=== PATIENT | female | born 1930 | race Caucasian/White ===

== ENCOUNTER 2016-05-26 03:05 | Inpatient (IN) | payer OTHER ==
[~2016-05-26] VITALS: Ht 160 cm; Wt 41.6 kg
[2016-05-26] VITALS (13 sets, daily range): BP systolic 92–128; BP diastolic 54–63; PULSE 75–106; TEMP 36.3–36.6; O2SAT 90–99; Ht 160 cm; Wt 41.6 kg
[2016-05-26] MEDS ORDERED: CEPH500C2 PO (03:16)
[2016-05-26] MEDS ORDERED: PIPERACILLIN/TAZOBACTAM 4.5 GM/100ML D5W IV STA (03:18)
[2016-05-26] MEDS ORDERED: TRAZ50TA35 PO (03:18)
[2016-05-26] MEDS ORDERED: VANCOMYCIN INJ 1,000 MG in SODIUM CHLORIDE 0.9% 250ML 250 ML IV STA (03:18)
[2016-05-26] MEDS ORDERED: FUROSEMIDE 40 MG/4 ML VIAL IV STA (03:18)
[2016-05-26] MEDS ORDERED: LEVO88TA3 PO (03:18)
[2016-05-26] MEDS ORDERED: LISI-789 PO (03:20)
[2016-05-26] MEDS ORDERED: CLOP1TAB15 PO (03:20)
[2016-05-26] MEDS ORDERED: ATOR-24 PO (03:21)
[2016-05-26] MEDS ORDERED: ISOS-10 PO (03:22)
[2016-05-26] MEDS ORDERED: POLY335019 PO (03:23)
[2016-05-26] MEDS ORDERED: ASPI81TA28 PO (03:24)
[2016-05-26] MEDS ORDERED: CLR10 PO (03:24)
[2016-05-26] MEDS ORDERED: NTRGSL/4 UT (03:25)
--- NOTE | 2016-05-26 03:25 | EMERGENCY ROOM VISIT NOTE ---
History Report prepared by Jong: Luis Miguel Rich Under the Supervision of: Dr. Rola Henry M.D. First contact with patient: 03:12 Chief Complaint: SHORTNESS OF BREATH Stated Complaint: RESPIRATORY DIFFICUTLY History of Present Illness The patient is a 85 year old female who presents to the Emergency Room via EMS with complaints of constant shortness of breath occurring prior to arrival. Per the nursing staff, the patient came in on CPAP, and she possibly aspirated around 1800. The patient states that her leg has been red and swollen for the past two weeks, and she fell about a week ago. The patient states that she has a history of irregular heart rates. She denies taking any blood thinners and smoking. Source of History: patient, nursing staff Onset: prior to arrival Position: other (global) Quality: other (shortness of breath) Timing: constant Associated Symptoms: No fevers Note: Associated symptoms: Red leg with swelling Review of Systems See HPI for pertinent positives & negatives. A total of 10 systems reviewed and were otherwise negative. Past Medical & Surgical Medical Problems: (1) A-fib Social History Marital Status: Occupation Status: retired Current/Historical Medications Scheduled Aspirin (Aspirin Ec), 81 MG PO DAILY Atorvastatin (Lipitor), 40 MG PO DAILY Cephalexin Monohydrate (Keflex), 500 MG PO TID Clopidogrel (Plavix), 75 MG PO DAILY Isosorbide Mononitrate (Isosorbide Mononitrate ER), 60 MG PO DAILY Levothyroxine Sodium (Levothyroxine Sodium), 88 MCG PO DAILY Lisinopril (Zestril), 2.5 MG PO DAILY Nitroglycerin (Nitrostat), 0.4 MG UT PRN Scheduled PRN Loratadine (Claritin), 10 MG PO DAILY PRN for ALLERGIC REACTION Polyethylene Glycol 3350 (Miralax), 17 GM PO DAILY PRN for Constipation Trazodone Hcl (Trazodone), 50 MG PO HS PRN for Insomnia Allergies Coded Allergies: Penicillins (Verified Allergy, Unknown, UNKNOWN, 05/26/16) Sulfa Antibiotics (Verified Allergy, Unknown, UNKNOWN, 05/26/16) Physical Exam Vital Signs Date Time Temp Pulse Resp B/P Pulse Ox O2 Delivery O2 Flow Rate FiO2 05/26/16 06:21 94 25 126/69 92 4/21/17 06:09 72 05/26/16 06:09 106 92 30 05/26/16 05:29 100 36 116/56 93 CPAP 05/26/16 04:12 91 30 124/46 94 BiPAP 30 05/26/16 03:32 95 05/26/16 03:31 87 98 30 05/26/16 03:12 36.7 101 27 123/75 97 Nasal Cannula 4.0 05/26/16 03:12 95 Nasal Cannula 4.0 Physical Exam Vital signs reviewed. General: Well-appearing female, in no significant distress. HEENT: No scleral icterus, PERRLA, neck supple. Atraumatic. Cardiovascular: Regular rate and irregular rhythm, no extra sounds. Pulmonary: Coarse breath sounds bilaterally, normal work of breathing. Abdomen: Soft, nontender, nondistended, positive bowel sounds. Musculoskeletal: Pitting edema in bilateral lower extremities 3+. Erythema to the left leg from the ankle to the knee with ecchymosis to the lateral and posterior aspect that is warm to the touch. Neurologic: Patient awake but minimally verbal. Patient is able to follow commands but is somewhat anxious. Skin: Warm, dry, left lower extremity erythema as described above. Medical Decision & Procedures ER Provider Diagnostic Interpretation: Radiology results as stated below per my review and radiologist interpretation: US VENOUS BILATERAL LOWER EXTREMITIES: No evidence of deep venous thrombosis. Edema, limiting evaluation of calf veins. X-ray results as stated below per interpretation by me: Chest X-Ray: Cardiomegaly. No focal lung consolidation. No evidence of failure. Laboratory Results 05/26/16 02:28 Red Blood Count 3.78, Mean Corpuscular Volume 101.6, Mean Corpuscular Hemoglobin 33.1, Mean Corpuscular Hemoglobin Concent 32.6, Mean Platelet Volume 11.1, Neutrophils (%) (Auto) 82.0, Lymphocytes (%) (Auto) 9.1, Monocytes (%) ( Auto) 8.1, Eosinophils (%) (Auto) 0.4, Basophils (%) (Auto) 0.1, Neutrophils # ( Auto) 7.34, Lymphocytes # (Auto) 0.82, Monocytes # (Auto) 0.73, Eosinophils # ( Auto) 0.04, Basophils # (Auto) 0.01 05/26/16 02:28 Test 05/26/16 02:28 05/26/16 03:19 05/26/16 03:36 05/26/16 03:37 White Blood Count 8.97 K/uL (4.8-10.8) Red Blood Count 3.78 M/uL (4.2-5.4) Hemoglobin 12.5 g/dL (12.0-16.0) Hematocrit 38.4 % (37-47) Mean Corpuscular Volume 101.6 fL (80-100) Mean Corpuscular Hemoglobin 33.1 pg (25-34) Mean Corpuscular Hemoglobin Concent 32.6 g/dl (32-36) Platelet Count 276 K/uL (130-400) Mean Platelet Volume 11.1 fL (7.4-10.4) Neutrophils (%) (Auto) 82.0 % Lymphocytes (%) (Auto) 9.1 % Monocytes (%) (Auto) 8.1 % Eosinophils (%) (Auto) 0.4 % Basophils (%) (Auto) 0.1 % Neutrophils # (Auto) 7.34 K/uL (1.4-6.5) Lymphocytes # (Auto) 0.82 K/uL (1.2-3.4) Monocytes # (Auto) 0.73 K/uL (0.11-0.59) Eosinophils # (Auto) 0.04 K/uL (0-0.5) Basophils # (Auto) 0.01 K/uL (0-0.2) RDW Standard Deviation 64.2 fL (36.4-46.3) RDW Coefficient of Variation 17.4 % (11.5-14.5) Immature Granulocyte % (Auto) 0.3 % Immature Granulocyte # (Auto) 0.03 K/uL (0.00-0.02) Prothrombin Time 10.9 SECONDS (9.0-12.0) Prothromb Time International Ratio 1.0 (0.9-1.1) Activated Partial Thromboplast Time 27.1 SECONDS (21.0-31.0) Partial Thromboplastin Ratio 1.0 Est Creatinine Clear Calc Drug Dose 83.3 ml/min Estimated GFR () 118.1 Estimated GFR (Non- 101.9 BUN/Creatinine Ratio 52.8 (10-20) Calcium Level 8.6 mg/dl (8.5-10.1) Magnesium Level 2.1 mg/dl (1.8-2.4) Total Bilirubin 1.5 mg/dl (0.2-1) Direct Bilirubin 0.5 mg/dl (0-0.2) Aspartate Amino Transf (AST/SGOT) 28 U/L (15-37) Alanine Aminotransferase (ALT/SGPT) 32 U/L (12-78) Alkaline Phosphatase 353 U/L (45-117) Total Creatine Kinase 92 U/L (26-192) Creatine Kinase MB 5.4 ng/ml (0.5-3.6) Creatine Kinase MB Ratio 5.9 (0-3.0) Total Protein 7.4 gm/dl (6.4-8.2) Albumin 3.0 gm/dl (3.4-5.0) Thyroid Stimulating Hormone (TSH) 1.590 uIu/ml (0.300-4.500) Bedside Troponin I 0.010 ng/ml (0-0.045) KZ-Uqs-I-Type Natriuretic Peptide 3090 pg/ml (0-1800) Bedside Lactic Acid Venous 0.83 mmol/L (0.90-1.70) Bedside Hemoglobin 12.6 g/dl (12.0-16.0) Bedside Hematocrit 37 % (37-47) Bedside Sodium 140 mEq/L (135-144) Bedside Potassium 4.3 mEq/L (3.3-5.0) Bedside Chloride 100 mEq/L (101-112) Bedside Total CO2 27 mEq/l (24-31) Anion Gap 17.0 mmol/L (16-25) Bedside Blood Urea Nitrogen 17 mg/dl (7-18) Bedside Creatinine 0.3 mg/dl (0.6-1.3) Bedside Glucose (other) 118 mg/dl (70-99) Bedside Ionized Calcium (Cailin) 1.20 mmol/l (1.12-1.32) Test 05/26/16 03:46 05/26/16 06:02 05/26/16 06:05 Urine Color YELLOW Urine Appearance CLEAR (CLEAR) Urine pH 5.0 (4.5-7.5) Urine Specific [place] >= 1.030 (1.000-1.030) Urine Protein TRACE (NEG) Urine Glucose (UA) NEG (NEG) Urine Ketones NEG (NEG) Urine Occult Blood 1+ (NEG) Urine Nitrite NEG (NEG) Urine Bilirubin NEG (NEG) Urine Urobilinogen NEG (NEG) Urine Leukocyte Esterase NEG (NEG) Urine RBC 5-10 /hpf (0-4) Urine WBC 1-5 /hpf (0-5) Urine Epithelial Cells 10-20 /lpf (0-5) Urine Amorphous Sediment PRESENT (NONE PRSENT) Urine Bacteria NEG (NEG) Arterial Blood pH 7.27 (7.35-7.45) Arterial Blood Partial Pressure CO2 67 mmHg (35-46) Arterial Blood Partial Pressure O2 69 mm/Hg (80-95) Arterial Blood HCO3 30 mmol/L (19-24) Arterial Blood Oxygen Saturation 88.7 % (90-95) Arterial Blood Base Excess 2.2 mEq/L (-9-1.8) Arterial Blood Gas Delivery 30% Armani Test POS (POS) Ammonia 32.0 umol/L (11-32) Laboratory results per my review. Medications Administered Medications (Trade) Dose Ordered Sig/Kev Route Start Time Stop Time Status Last Admin Dose Admin Furosemide (Lasix Inj) 40 mg NOW STAT IV 05/26/16 03:18 05/26/16 03:23 DC 05/26/16 03:36 40 MG Piperacillin Sod/ Tazobactam Sod 4.5 gm 4.5 gm NOW STAT IV 05/26/16 03:18 05/26/16 03:23 DC 05/26/16 03:36 4.5 GM Vancomycin HCl/ Sodium Chloride (Vancomycin Inj/ Nss 250ml) 270 ml @ 125 mls/hr NOW STAT IV 05/26/16 03:18 05/26/16 05:27 DC 05/26/16 04:08 125 MLS/HR Lorazepam (Ativan Inj) 0.5 mg NOW STAT IV 05/26/16 04:33 05/26/16 04:34 DC 05/26/16 04:45 0.5 MG Methylprednisolone Sodium Succinate (Solu-Medrol IV) 40 mg TODAY@0600 IV 05/26/16 06:00 05/26/16 10:00 05/26/16 06:19 40 MG ECG Indication: SOB/dyspnea Rate (beats per minute): 88 Rhythm: atrial fibrillation Findings: no acute ischemic change, other (Previous anterior infarct) ED Course 0312: Past medical records reviewed. The patient was evaluated in room A2. A complete history and physical examination was performed. 0318: Vancomycin HCl 1000mg/ Sodium Chloride 270 ml @ 125 mls/hr, Zosyn IV 4.5gm IV, Lasix Inj 40mg IV 0433: Ativan Inj 0.5mg IV 0532: I reevaluated the patient, and she was resting. 0536: I discussed the patient's case with Dr. Robbins. He is going to evaluate the patient for further treatment Medical Decision Differential diagnosis: Etiologies such as sepsis, CHF, UTI, pneumonia, metabolic, electrolyte abnormalities, cardiac sources, intracerebral event, toxicologic, neurologic, as well as others were entertained. This patient was evaluated and appeared to be in significant distress. IV access was obtained and laboratory work was drawn. The patient was placed on BiPAP and given 40 mg of IV Lasix. Chest x-ray reveals cardiomegaly. Bilateral lower extremities Dopplers were performed and are negative for DVT. The patient is a left colectomy cellulitis. Her family states that she aspirated on some bread earlier in the day. She was covered with IV vancomycin , IV Zosyn. Patient was given 0.5 mg of IV Ativan for agitation while on BiPAP. Oxygen saturations are in the low 90s on BiPAP currently. Patient is found to be in a rate controlled atrial fibrillation. Cardiac enzymes are normal. Dr. Garrison of the hospitalist service was consulted to evaluate the patient for further management. Consults Time Called: 531 Consulting Physician: Dr. Robbins Returned Call: 0536 I discussed the patient's case with Dr. Robbins. He is going to evaluate the patient for further treatment Impression Primary Impression: Cellulitis of left lower extremity Additional Impressions: Respiratory failure Pulmonary aspiration CHF (congestive heart failure) A-fib Critical Care I have personally spent greater than 30 minutes of critical care time in the direct management of this patient. This includes bedside care, interpretation of diagnostic studies, and testing, discussion with consultants, patient, and family members, and other required patient management activities. This 30 minutes is in excess of all separately billable procedures. Scribe Attestation The scribe's documentation has been prepared under my direction and personally reviewed by me in its entirety. I confirm that the note above accurately reflects all work, treatment, procedures, and medical decision making performed by me. Departure Information Dispostion Being Evaluated By Hospitalist Patient Instructions My [facility] Problem Qualifiers
[2016-05-26 03:30] LABS: BASO % 0.1 %; BASO ABS # 0.01 K/uL (0-0.2); COMPLETE YES; EOS % 0.4 %; HEMATOCRIT 38.4 % (37-47); IG% 0.3 %; LYMPH % 9.1 %; LYMPH ABS # 0.82 K/uL (1.2-3.4); MEAN CELL VOLUME 101.6 fL (80-100); MEAN CORPUSCULAR HEMOGLOBIN 33.1 pg (25-34); MEAN CORPUSCULAR HGB CONC 32.6 g/dl (32-36); MEAN PLATELET VOLUME 11.1 fL (7.4-10.4); MONO % 8.1 %; PLATELET COUNT 276 K/uL (130-400); RED BLOOD COUNT 3.78 M/uL (4.2-5.4); WHITE BLOOD COUNT 8.97 K/uL (4.8-10.8)
[2016-05-26 03:40] LABS: PROTHROMBIN TIME (PATIENT) 10.9 SECONDS (9.0-12.0)
[2016-05-26 03:41] LABS: POINT OF CARE TROPONIN I 0.01 ng/ml (0-0.045)
[2016-05-26 03:48] LABS: BUN/CREATININE RATIO 52.8 (10-20); CALCIUM 8.6 mg/dl (8.5-10.1); CREATININE 0.33 mg/dl (0.60-1.20); MAGNESIUM 2.1 mg/dl (1.8-2.4); POTASSIUM 4.2 mmol/L (3.5-5.1)
[2016-05-26 03:53] LABS: CKMB/CK RATIO 5.9 (0-3.0)
[2016-05-26 04:03] LABS: ISTAT CREATININE 0.3 mg/dl (0.6-1.3); ISTAT HEMOGLOBIN 12.6 g/dl (12.0-16.0); ISTAT IONIZED CALCIUM 1.2 mmol/l (1.12-1.32)
[2016-05-26] MEDS ORDERED: LORAZEPAM 2 MG/ML 1 ML VIAL IV STA (04:33)
[2016-05-26 04:37] LABS: MANUAL MICROSCOPIC REQUIRED? YES; URINE APPEARANCE CLEAR (CLEAR); URINE BILIRUBIN NEG (NEG); URINE COLOR YELLOW; URINE NITRITE NEG (NEG); URINE SPECIFIC GRAVITY >= 1.030 (1.000-1.030); UROBILINOGEN NEG (NEG)
[2016-05-26 04:42] LABS: REVIEW REQ? NO
[2016-05-26 04:47] LABS: URINE AMORPHOUS SEDIMENT PRESENT (NONE PRSENT); URINE BACTERIA NEG (NEG); ZZURINE CULT IF INDIC CATH NO
[2016-05-26] MEDS ORDERED: LEVALBUTEROL/IPRATROPIUM NEB INH STA (05:38)
[2016-05-26] MEDS ORDERED: METHYLPREDNISOLONE IV 40 MG in SYRINGE 0 ML IV ONE (05:45)
[2016-05-26] MEDS ORDERED: IPRATROPIUM BROMIDE NEB SOLN 0.02% 2.5 ML VIAL INH STA (06:01)
[2016-05-26] MEDS ORDERED: LEVALBUTEROL 1.25MG/0.5ML NEB INH STA (06:01)
[2016-05-26 06:16] LABS: ALLEN TEST POS (POS); ARTERIAL BLD GAS O2 SATURATION 88.7 % (90-95); ARTERIAL BLOOD GAS BASE EXCESS 2.2 mEq/L (-9-1.8); ARTERIAL BLOOD GAS HCO3 30 mmol/L (19-24); ARTERIAL BLOOD GAS PO2 69 mm/Hg (80-95); ARTERIAL BLOOD GAS pH 7.27 (7.35-7.45); O2 ADMINISTRATION 30%
[2016-05-26] MEDS ORDERED: NITROGLYCERIN 0.4 MG SL PER TAB CHARGE SL PRN (06:45)
[2016-05-26] MEDS ORDERED: IPRATROPIUM BROMIDE NEB SOLN 0.02% 2.5 ML VIAL INH PRN (06:45)
[2016-05-26] MEDS ORDERED: POLYETHYLENE (MIRALAX) 17 GM PACK PO PRN (06:45)
[2016-05-26] MEDS ORDERED: LEVALBUTEROL/IPRATROPIUM NEB INH PRN (06:45)
[2016-05-26] MEDS ORDERED: DEXTROSE 50% 50 ML SYR IV PRN (06:45)
[2016-05-26] MEDS ORDERED: TRAZODONE HCL 50 MG TAB PO PRN (06:45)
[2016-05-26] MEDS ORDERED: ACETAMINOPHEN 325 MG TAB PO PRN (06:45)
[2016-05-26] MEDS ORDERED: LEVALBUTEROL 1.25MG/0.5ML NEB INH PRN (06:45)
[2016-05-26] MEDS ORDERED: TRAMADOL HCL 50 MG TAB PO PRN (06:45)
[2016-05-26] MEDS ORDERED: GLUCOSE 10 TABS/TUBE PO PRN (06:45)
[2016-05-26] MEDS ORDERED: GLUCAGON FOR INJ 1 MG VIAL SQ PRN (06:45)
[2016-05-26] MEDS ORDERED: GLUCOSE 40% GEL 15 GM TUBE PO PRN (06:45)
[2016-05-26] MEDS: INSULIN ASPART 100 UNITS/ML 3 ML PEN SC SCH ×4 (07:00→20:23)
--- NOTE | 2016-05-26 07:06 | DIAGNOSTIC IMAGING REPORT ---
ULTRASOUND BILATERAL LOWER EXTREMITY VENOUS CLINICAL HISTORY: Lower extremity edema. COMPARISON STUDY: No priors. TECHNIQUE: Real-time, grayscale, and color Doppler sonography of the deep veins of the right and left lower extremity was performed from the inguinal crease to the calf. Compression and augmentation were utilized. FINDINGS: There is no sonographic evidence of deep venous thrombosis identified in the right or left lower extremity. The common femoral, superficial femoral, and popliteal veins are patent and normally compressible bilaterally. The greater saphenous vein and the profunda femoris vein at the junction with the common femoral vein are clear in both legs. The visualized calf veins are patent bilaterally. Soft tissue edema is present in both legs. IMPRESSION: There is no sonographic evidence of deep venous thrombosis identified in the right or left lower extremity. Electronically signed by: Moose Mata M.D. 05/26/2016 7:03 AM Dictated Date/Time: 05/26/2016 7:03 AM
--- NOTE | 2016-05-26 07:16 | DIAGNOSTIC IMAGING REPORT ---
SINGLE VIEW CHEST CLINICAL HISTORY: Dyspnea. FINDINGS: An AP, portable, upright chest radiograph is obtained. No prior studies are available for comparison at the time of dictation. The examination is significantly degraded by portable technique and patient rotation. The apices are secured by the patient's head. The heart is markedly enlarged and there is atherosclerotic calcification of the thoracic aorta. The pulmonary vasculature is noncongested. Chronic appearing interstitial thickening is noted. Airspace consolidation is seen at the left lung base. Small pleural effusions are suspected. No pneumothorax is seen. The skeletal structures are osteopenic. Degenerative change and scoliosis are noted in the thoracic spine. Cholecystectomy clips are seen in the right upper quadrant. IMPRESSION: 1. Cardiomegaly without radiographic evidence of congestive failure. 2. Left basilar consolidation is identified. This could represent atelectasis, aspiration pneumonitis, and/or pneumonia. Clinical correlation will be required. 3. Small pleural effusions. Electronically signed by: Moose Mata M.D. 05/26/2016 7:14 AM Dictated Date/Time: 05/26/2016 7:12 AM
[2016-05-26] MEDS: IPRATROPIUM BROMIDE NEB SOLN 0.02% 2.5 ML VIAL INH SCH ×3 (07:21→20:24)
[2016-05-26] MEDS: LEVALBUTEROL 1.25MG/0.5ML NEB INH SCH ×3 (07:21→20:24)
[2016-05-26] MEDS ORDERED: SODIUM CHLORIDE 0.9% 500ML 500 ML IV ONE (07:30)
[2016-05-26] MEDS: LACTOBACILLUS ACIDOPHILUS (FLORANEX) TAB PO SCH ×4 (07:30→19:50)
[2016-05-26] MEDS ORDERED: CLINDAMYCIN HCL 150 MG CAP PO SCH ×2 (08:00→11:00)
--- NOTE | 2016-05-26 08:10 | HISTORY & PHYSICAL EXAMINATION ---
DATE OF ADMISSION: 05/26/2016 PRIMARY CARE PHYSICIAN: Dr. Gilbert. History obtained from patient's daughter and records, limited history from the patient secondary to illness and hearing impairment. CHIEF COMPLAINT: Shortness of breath. 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 Last week the patient hit her left leg against refrigerator. Outpatient workup negative for fracture, DVT. Given Keflex for possible cellulitis left leg, leg more swollen. The last few days, patient seemed to be losing strength in the legs - legs heavy. px having trouble moving around as per daughters. PX denies headache. Last night, the patient noted to choke on food, worsening of chronic cough symptoms, productive of yellow sputum. No cp. Patient refused to go to the Emergency Room. Earlier this morning, the patient's noted by daughter that the patient was having more labored breathing. At the Emergency Room the patient noted to be in respiratory distress. Px on CPAP on arrival. Received Lasix, Zosyn and vancomycin at the ER. PX currently on BIPAP. MEDICAL HISTORY: As above. 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 Px used to go to [facility]. At the time of last G Cardio visit last 04/2016, patient deemed not to be a good candidate for anticoag secondary to age and cognitive deficits as per note. An outpatient 2D echo from October 2014 showed EF of 55-60%, mild RV dilatation, LA size normal, pulmonary artery is not well seen, mild aortic stenosis, aortic valve area 1.6 cm, mean gradient is 7 mm, mild MR, moderate TR, mild pulmonary hypertension, diastolic dysfunction. Seen by [facility] last December 2015 for abnormal liver function, concern for primary biliary cirrhosis. Patient refused to go for followup appointment to discuss results. As per daughter conversation with [facility] over the phone, px will not likely go for further testing given that px was well and because of px age. SURGICAL HISTORY: Cholecystectomy, hysterectomy, cataract surgery. HOME MEDICATIONS: Aspirin, Plavix, Lipitor, Keflex, isosorbide mononitrate, levothyroxine, Zestril, loratadine, Nitrostat, MiraLax, trazadone. ALLERGIES: PENICILLIN, SULFA. FAMILY HISTORY: Family history of heart disease. PERSONAL AND SOCIAL HISTORY: Nonsmoker, no chronic intake of alcoholic beverages. 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 REVIEW OF SYSTEMS: could not be reliably obtained PHYSICAL EXAMINATION: VITAL SIGNS: Blood pressure was noted to be 130/70, pulse rate 110, pulse rate 95, RR 30, temperature 36.7, sats 95 on 4 liters. GENERAL: Hyposthenic, in respiratory distress. Marked hearing impairment. SKIN: Normal color. HEAD, EYES, EARS, NOSE, AND THROAT: Center palpebral conjunctivae. Dry mucosa. BiPAP in place. NECK: no JVD, supple CHEST: Occasional wheeze, rhonchi. HEART: irregular, systolic murmur. ABDOMEN: Some distension, nontender. EXTREMITIES: erythematous, swollen LLE, some tenderness NEUROLOGIC EXAMINATION: No gross focality except for decreased strength on the LLE 3/5 (unknown duration), marked hearing impairment. LABORATORY DATA: Hemoglobin 12.5, hematocrit 34, white cells 8.9, platelets 270. Sodium 140, potassium 4.2, chloride 104, CO2 36, BUN 17, creatinine 1. BNP 3000. trop 0.1 Total bilirubin 1.5, direct bilirubin 1.5, AST 28, ALT Chest x-ray cardiomegaly, atelectasis. LE Venous Dopplers bilateral lower extremity edema, no DVT. EKG Afib. ASSESSMENT AND PLAN: 1. Acute hypoxemic respiratory failure 2 to aspiration pneumonitis known aspiration risk. no sepsis 2. CAD status post dilatation as per records/sp stenting as per daughter's 3. history valvular heart disease 4. Hypertension, stable. 5. Atrial fibrillation/poss SSS/hx 2AVB as per records rate controlled not on anticoagulation due to age and possible cognitive deficits as per outpatient Cardiology eval 6. Left lower extremity cellulitis, failed outpatient treatment. recent trauma no sepsis 7. LE weakness ro CVA 8. diet-controlled DM2, well controlled as of recent hemoglobin A1c April 2016 was 5.1. 9. Malnutrition. Low BMI. 10. poss primary biliary cirrhosis as per outpx records px refused outpx GI ffup PCU continue BiPAP. Baseline ABG. Clindamycin for aspiration pneumonitis and cellulitis. Solu-Medrol one dose now for aspiration pneumonitis. may benefit from additional steroid dose Nebs RTC, p.r.n. swallow evaluation. local measures for cellulitis CT head RE LE weakness ro stroke with hx of Afib not on anticoagulation. ISS BG goal 140 to 180. PT, OT eval. Nutrition consult DVT prophylaxis, Lovenox subQ if no bleed on the CT of the head. DNR PER PATIENT'S PREVIOUS WISHES. Daughter, Ms. Beverly Dumont requesting updates from providers at [phone]. Total critical care time was 5 minutes. MTDD
[2016-05-26 08:35] LABS: INFLUENZA A PCR Neg for Influ A (NEG); INFLUENZA B PCR Neg for Influ B (NEG)
[2016-05-26] MEDS: ATORVASTATIN 40 MG TAB PO SCH (09:00)
[2016-05-26] MEDS: LEVOTHYROXINE 88 MCG TAB PO SCH (09:00)
[2016-05-26] MEDS ORDERED: LEVALBUTEROL/IPRATROPIUM NEB INH SCH (09:00)
[2016-05-26] MEDS: ISOSORBIDE MONONITRATE 60 MG TABCR PO SCH (09:00)
[2016-05-26] MEDS ORDERED: CLINDAMYCIN CONSULT ACTIVE PRN ×2 (09:00)
[2016-05-26] MEDS: ASPIRIN 81 MG ECTAB PO SCH (09:00)
[2016-05-26] MEDS: CLOPIDOGREL BISULFATE 75 MG TAB PO SCH (09:00)
[2016-05-26] MEDS: LISINOPRIL 2.5 MG TAB PO SCH (09:00)
[2016-05-26 10:23] LABS: ARTERIAL BLD GAS O2 SATURATION 93.2 % (90-95); ARTERIAL BLOOD GAS BASE EXCESS 0.9 mEq/L (-9-1.8); ARTERIAL BLOOD GAS HCO3 30 mmol/L (19-24); ARTERIAL BLOOD GAS PO2 83 mm/Hg (80-95); ARTERIAL BLOOD GAS pH 7.22 (7.35-7.45)
[2016-05-26 10:26] LABS: ALLEN TEST POS (POS); O2 ADMINISTRATION 4L
[2016-05-26] MEDS ORDERED: PIPERACILL/TAZOBAC CONSULT ACTIVE PRN (12:15)
[2016-05-26] MEDS: PIPERACILL/TAZOBAC IV 3.375 GM in DEXTROSE 5% 100ML 100 ML IV SCH ×2 (13:12→19:50)
[2016-05-26] MEDS: BOOST BREEZE NUTRITION DRINK 1 BOX PO SCH (16:45)
--- NOTE | 2016-05-26 17:48 | DIAGNOSTIC IMAGING REPORT ---
ANKLE MIN 3 VIEWS ROUTINE CLINICAL HISTORY: S/P fall pain COMPARISON: None. DISCUSSION: Considerable degenerative change. No acute bony abnormality. Ankle mortise is aligned anatomically. There is no evidence for soft tissue swelling. IMPRESSION: Considerable degenerative change. No acute process. Electronically signed by: Collin Ramirez M.D. 05/26/2016 5:46 PM Dictated Date/Time: 05/26/2016 5:45 PM
--- NOTE | 2016-05-26 17:49 | DIAGNOSTIC IMAGING REPORT ---
LEFT KNEE 1 OR 2 VIEWS ROUTINE CLINICAL HISTORY: S/P Fall trauma. Pain. COMPARISON: None. DISCUSSION: Moderate generalized degenerative change. No evidence for fracture or dislocation. There is no evidence for soft tissue swelling. IMPRESSION: No acute process. Electronically signed by: Collin Ramirez M.D. 05/26/2016 5:47 PM Dictated Date/Time: 05/26/2016 5:46 PM
--- NOTE | 2016-05-26 17:50 | DIAGNOSTIC IMAGING REPORT ---
LEFT TIBIA/FIBULA 2 VIEWS ROUTINE CLINICAL HISTORY: S/P fall COMPARISON: None. DISCUSSION: The bones and joint spaces appear intact. There is no evidence of fracture, dislocation or bony disease. There is no evidence for soft tissue swelling. IMPRESSION: Negative study. Electronically signed by: Collin Ramirez M.D. 05/26/2016 5:48 PM Dictated Date/Time: 05/26/2016 5:48 PM
--- NOTE | 2016-05-26 18:08 | DIAGNOSTIC IMAGING REPORT ---
HEAD CT NONCONTRAST CT DOSE: 998.18 mGy.cm HISTORY: Mental status change leg weakness TECHNIQUE: Multiaxial CT images of the head were performed without the use of intravenous contrast. Comparison: None. Findings: The paranasal sinuses and mastoid air cells are clear. The calvarium and skull base are intact. The ventricles and sulci are within normal limits. There is no mass, hematoma, midline shift, or acute infarct. Impression: No acute intracranial abnormality. Electronically signed by: Collin Ramirez M.D. 05/26/2016 6:06 PM Dictated Date/Time: 05/26/2016 6:04 PM
[2016-05-26] MEDS ORDERED: ACETAMINOPHEN IV 650 MG in EMPTY BAG 0 ML IV PRN (19:00)
[2016-05-27] VITALS (10 sets, daily range): BP systolic 96–110; BP diastolic 55–68; PULSE 83–110; TEMP 36.3–36.6; O2SAT 85–98
[2016-05-27] MEDS ORDERED: HALOPERIDOL 1 MG TAB PO PRN (00:15)
[2016-05-27] MEDS ORDERED: HALOPERIDOL LACTATE 5 MG/ML 1 ML VIAL IM PRN (00:15)
[2016-05-27] MEDS ORDERED: HALOPERIDOL LACTATE 5 MG/ML 1 ML VIAL ONE (00:26)
[2016-05-27 01:06] LABS: ARTERIAL BLD GAS O2 SATURATION 96.5 % (90-95); ARTERIAL BLOOD GAS BASE EXCESS 1.7 mEq/L (-9-1.8); ARTERIAL BLOOD GAS HCO3 30 mmol/L (19-24); ARTERIAL BLOOD GAS PO2 99 mm/Hg (80-95); ARTERIAL BLOOD GAS pH 7.28 (7.35-7.45)
[2016-05-27 01:07] LABS: ALLEN TEST POS (POS); CREATININE 0.45 mg/dl (0.60-1.20); O2 ADMINISTRATION 40%
[2016-05-27 01:08] LABS: BUN/CREATININE RATIO 47.4 (10-20); CALCIUM 8.1 mg/dl (8.5-10.1); POTASSIUM 4.2 mmol/L (3.5-5.1)
[2016-05-27] MEDS: LEVALBUTEROL 1.25MG/0.5ML NEB INH SCH ×3 (01:09→14:27)
[2016-05-27] MEDS: IPRATROPIUM BROMIDE NEB SOLN 0.02% 2.5 ML VIAL INH SCH ×3 (01:09→14:27)
[2016-05-27 01:26] LABS: ALB/GLOB RATIO 0.6 (0.9-2)
[2016-05-27] MEDS: PIPERACILL/TAZOBAC IV 3.375 GM in DEXTROSE 5% 100ML 100 ML IV SCH ×2 (04:29→12:08)
[2016-05-27] MEDS: HEPARIN SOD 5000 UNIT/0.5 ML CARP SQ SCH ×2 (05:45→14:20)
[2016-05-27] MEDS: LEVOTHYROXINE 88 MCG TAB PO SCH (05:46)
[2016-05-27 06:53] LABS: BASO % 0.1 %; BASO ABS # 0.01 K/uL (0-0.2); COMPLETE YES; EOS % 0.1 %; HEMATOCRIT 37.1 % (37-47); IG% 0.3 %; LYMPH % 1.9 %; MEAN CELL VOLUME 103.6 fL (80-100); MEAN CORPUSCULAR HEMOGLOBIN 31.8 pg (25-34); MEAN CORPUSCULAR HGB CONC 30.7 g/dl (32-36); MEAN PLATELET VOLUME 11.1 fL (7.4-10.4); MONO % 6.3 %; NEUT % 91.3 %; PLATELET COUNT 270 K/uL (130-400); RED BLOOD COUNT 3.58 M/uL (4.2-5.4); WHITE BLOOD COUNT 15.99 K/uL (4.8-10.8)
[2016-05-27] MEDS: INSULIN ASPART 100 UNITS/ML 3 ML PEN SC SCH ×2 (07:00→11:00)
[2016-05-27 07:18] LABS: BUN/CREATININE RATIO 48.3 (10-20); CALCIUM 8.6 mg/dl (8.5-10.1); CREATININE 0.52 mg/dl (0.60-1.20); POTASSIUM 3.9 mmol/L (3.5-5.1)
[2016-05-27] MEDS: BOOST BREEZE NUTRITION DRINK 1 BOX PO SCH (07:30)
[2016-05-27] MEDS: LACTOBACILLUS ACIDOPHILUS (FLORANEX) TAB PO SCH ×2 (07:30→11:30)
[2016-05-27] MEDS: CLOPIDOGREL BISULFATE 75 MG TAB PO SCH (07:58)
[2016-05-27] MEDS: ATORVASTATIN 40 MG TAB PO SCH (07:59)
[2016-05-27] MEDS: LISINOPRIL 2.5 MG TAB PO SCH (07:59)
[2016-05-27] MEDS: ASPIRIN 81 MG ECTAB PO SCH (07:59)
[2016-05-27] MEDS: ISOSORBIDE MONONITRATE 60 MG TABCR PO SCH (09:00)
[2016-05-27] MEDS ORDERED: METHYLPREDNISOLONE IV 40 MG in SYRINGE 0 ML IV ONE (09:15)
--- NOTE | 2016-05-27 09:57 | Progress Note ---
Subjective Date of Service: May 27, 2016. Subjective Pt evaluation today including: conversation w/ patient, physical exam, lab review, review of studies, review of inpatient medication list Saw/examined the patient in room 240 Not doing well today as per nursing, she was talking this morning; tried to eat something and aspirated a significant portion of it She opens her eyes to sternal rub; but no answers only saturating in the upper 80s with Bipap on +crackles on exam, no swelling of legs; +erythematous left leg with some warmth to touch Problem List Medical Problems: (1) Cellulitis of left lower extremity Status: Acute (2) CHF (congestive heart failure) Status: Acute (3) Pulmonary aspiration Status: Acute (4) Respiratory failure Status: Acute Medications Current Inpatient Medications Medications (Trade) Dose Ordered Sig/Kev Route Start Time Stop Time Status Last Admin Dose Admin Lactobacillus Acidophilus (Floranex Tab) 4 tab QIDM PO 05/26/16 07:30 06/25/16 07:59 Ipratropium [place] (Atrovent 0.02% 0.5MG/2.5ML Neb) 0.5 mg Q6R INH 05/26/16 09:00 06/25/16 08:59 05/27/16 07:46 0.5 MG Levalbuterol (Xopenex 1.25MG/ 0.5ML Neb) 1.25 mg Q6R INH 05/26/16 09:00 06/25/16 08:59 05/27/16 07:46 1.25 MG Ipratropium [place] (Atrovent 0.02% 0.5MG/2.5ML Neb) 0.5 mg Q4H PRN INH 05/26/16 06:45 06/25/16 06:44 Levalbuterol (Xopenex 1.25MG/ 0.5ML Neb) 1.25 mg Q4H PRN INH 05/26/16 06:45 06/25/16 06:44 Acetaminophen (Tylenol Tab) 650 mg Q4H PRN PO 05/26/16 06:45 06/25/16 06:44 Nitroglycerin (Nitrostat Tab) 0.4 mg UD PRN SL 05/26/16 06:45 06/25/16 06:44 Insulin Aspart (novoLOG ASPART) SLIDING SCALE If C... ACHS SC 4/21/17 07:00 06/25/16 06:59 Glucose (Glucose 40% Gel) 15-30 GRAMS 15 GRAMS... UD PRN PO 05/26/16 06:45 06/25/16 06:44 Glucose (Glucose Chew Tab) 4-8 Tablets 4 Tabl... UD PRN PO 05/26/16 06:45 06/25/16 06:44 Dextrose (Dextrose 50% 50ML Syringe) 25-50ML OF 50% DW IV FOR... UD PRN IV 05/26/16 06:45 06/25/16 06:44 Glucagon (Glucagon Inj) 1 mg UD PRN SQ 05/26/16 06:45 06/25/16 06:44 Aspirin (Ecotrin Tab) 81 mg DAILY PO 05/26/16 09:00 06/25/16 08:59 05/27/16 07:59 81 MG Clopidogrel Bisulfate (plAVix TAB) 75 mg DAILY PO 05/26/16 09:00 06/25/16 08:59 05/27/16 07:58 75 MG Isosorbide Mononitrate (Imdur Ext Rel Tab) 60 mg DAILY PO 05/26/16 09:00 06/25/16 08:59 Levothyroxine Sodium (Synthroid Tab) 88 mcg DAILYBB PO 05/26/16 09:00 06/25/16 08:59 05/27/16 05:46 88 MCG Lisinopril (Zestril Tab) 2.5 mg DAILY PO 05/26/16 09:00 06/25/16 08:59 05/27/16 07:59 2.5 MG Trazodone HCl (Desyrel Tab) 25 mg HS PRN PO 05/26/16 06:45 06/25/16 06:44 Polyethylene (Miralax Powder Packet) 17 gm DAILY PRN PO 05/26/16 06:45 06/25/16 06:44 Tramadol HCl (Ultram Tab) 25 mg Q6H PRN PO 05/26/16 06:45 06/25/16 06:44 Atorvastatin Calcium 40 mg 40 mg DAILY PO 05/26/16 09:00 06/25/16 08:59 05/27/16 07:59 40 MG Piperacillin Sod/ Tazobactam Sod/ Dextrose (Zosyn Iv/D5 100ml) 115 ml @ 28.75 mls/ hr Q8H IV 05/26/16 12:00 06/02/16 11:59 05/27/16 04:29 28.75 MLS/HR Piperacillin Sod/ Tazobactam Sod (Consult) 1 ea UD PRN N/A 05/26/16 12:15 06/25/16 12:14 Enteral Nutritional Formula 1 box 1 box BIDM PO 05/26/16 16:45 06/25/16 16:44 Acetaminophen/ Empty Bag (Ofirmev Iv/ Empty Iv Bag 100ml) 65 ml @ 260 mls/hr Q6H PRN IV 05/26/16 19:00 06/25/16 18:59 Heparin Sodium (Porcine) (Heparin Sq 5000 Unit/0.5ml) 5,000 unit Q8 SQ 05/27/16 06:00 06/26/16 05:59 05/27/16 05:45 5,000 UNIT Haloperidol (Haldol Tab) 2 mg Q4H PRN PO 05/27/16 00:15 06/26/16 00:14 Haloperidol Lactate 2 mg 2 mg Q2H PRN IM 05/27/16 00:15 06/26/16 00:14 Methylprednisolone Sodium Succinate/ Syringe (Solu-Medrol IV/ Syringe) 0.64 ml @ 1.5 mls/min ONE ONCE IV 05/27/16 09:15 05/27/16 09:16 Objective Vital Signs Date Time Temp Pulse Resp B/P Pulse Ox O2 Delivery O2 Flow Rate FiO2 05/27/16 07:46 84 20 96 BiPAP/CPAP 35 05/27/16 07:46 84 96 35 05/27/16 07:33 36.5 105 20 100/57 94 BiPAP 05/27/16 04:00 BiPAP 40 05/27/16 03:49 36.4 83 20 96/55 98 05/27/16 01:19 35 05/27/16 01:10 87 96 40 05/27/16 01:09 87 24 96 BiPAP/CPAP 40 05/27/16 00:01 BiPAP 40 05/26/16 23:41 36.4 85 20 105/61 98 05/26/16 20:30 105 95 40 05/26/16 20:25 105 20 95 BiPAP/CPAP 40 05/26/16 20:00 BiPAP 40 05/26/16 19:18 36.5 104 18 100/56 95 Non-Rebreather 10.0 05/26/16 16:00 BiPAP 40 05/26/16 15:02 36.3 82 16 92/58 99 BiPAP 05/26/16 14:09 76 17 97 BiPAP/CPAP 40 05/26/16 14:09 76 97 40 05/26/16 12:05 BiPAP 40 05/26/16 12:00 BiPAP 40 05/26/16 11:45 83 96 40 05/26/16 11:14 36.3 75 20 93/54 96 BiPAP Physical Exam General Appearance: + moderate distress, + cachetic, + thin, + pertinent finding (+lethargic, thin, cachectic) Respiratory/Chest: + decreased breath sounds, + crackles (diffuse) Cardiovascular: regular rate, rhythm, no edema Extremities: + pertinent finding (erythematous left leg, warm to touch) Neurologic/Psychiatric: + pertinent finding (opens eyes to tactile stimuli) Laboratory Results Last 24 Hours Test 05/26/16 09:49 05/26/16 10:12 05/26/16 11:17 05/26/16 16:11 Troponin I < 0.015 ng/ml Arterial Blood pH 7.22 Arterial Blood Partial Pressure CO2 76 mmHg Arterial Blood Partial Pressure O2 83 mm/Hg Arterial Blood HCO3 30 mmol/L Arterial Blood Oxygen Saturation 93.2 % Arterial Blood Base Excess 0.9 mEq/L Arterial Blood Gas Delivery 4L Armani Test POS Bedside Glucose 127 mg/dl 144 mg/dl Test 05/26/16 20:08 05/27/16 00:29 05/27/16 06:30 05/27/16 06:46 Bedside Glucose 163 mg/dl 102 mg/dl Arterial Blood pH 7.28 Arterial Blood Partial Pressure CO2 65 mmHg Arterial Blood Partial Pressure O2 99 mm/Hg Arterial Blood HCO3 30 mmol/L Arterial Blood Oxygen Saturation 96.5 % Arterial Blood Base Excess 1.7 mEq/L Arterial Blood Gas Delivery 40% Armani Test POS Sodium Level 143 mmol/L 142 mmol/L Potassium Level 4.2 mmol/L 3.9 mmol/L Chloride Level 105 mmol/L 104 mmol/L Carbon Dioxide Level 33 mmol/L 32 mmol/L Anion Gap 5.0 mmol/L 6.0 mmol/L Blood Urea Nitrogen 21 mg/dl 25 mg/dl Creatinine 0.45 mg/dl 0.52 mg/dl Est Creatinine Clear Calc Drug Dose 61.1 ml/min 52.9 ml/min Estimated GFR () 106.6 101.7 Estimated GFR (Non- 92.0 87.7 BUN/Creatinine Ratio 47.4 48.3 Random Glucose 142 mg/dl 115 mg/dl Calcium Level 8.1 mg/dl 8.6 mg/dl Total Bilirubin 1.3 mg/dl 1.4 mg/dl Aspartate Amino Transf (AST/SGOT) 17 U/L 19 U/L Alanine Aminotransferase (ALT/SGPT) 25 U/L 27 U/L Alkaline Phosphatase 222 U/L 224 U/L Total Protein 5.7 gm/dl 6.1 gm/dl Albumin 2.1 gm/dl 2.3 gm/dl Globulin 3.6 gm/dl Albumin/Globulin Ratio 0.6 White Blood Count 15.99 K/uL Red Blood Count 3.58 M/uL Hemoglobin 11.4 g/dL Hematocrit 37.1 % Mean Corpuscular Volume 103.6 fL Mean Corpuscular Hemoglobin 31.8 pg Mean Corpuscular Hemoglobin Concent 30.7 g/dl Platelet Count 270 K/uL Mean Platelet Volume 11.1 fL Neutrophils (%) (Auto) 91.3 % Lymphocytes (%) (Auto) 1.9 % Monocytes (%) (Auto) 6.3 % Eosinophils (%) (Auto) 0.1 % Basophils (%) (Auto) 0.1 % Neutrophils # (Auto) 14.63 K/uL Lymphocytes # (Auto) 0.30 K/uL Monocytes # (Auto) 1.00 K/uL Eosinophils # (Auto) 0.01 K/uL Basophils # (Auto) 0.01 K/uL RDW Standard Deviation 65.9 fL RDW Coefficient of Variation 17.5 % Immature Granulocyte % (Auto) 0.3 % Immature Granulocyte # (Auto) 0.04 K/uL Direct Bilirubin 0.7 mg/dl Assessment and Plan This is an 85 year old female with PMH of CAD s/p stenting, A. fib/A flutter, second degree AV block, HTN presents with acute respiratory failure Acute Hypercapnic/Hypoxic Respiratory Failure as per family, patient has been choking on food as per nursing, patient was talking this AM (05/27) and aspirated nearly everything oxygen saturation dipped and patient was put back on Bipap ABGs suggest respiratory acidosis with hypercapnia & hypoxia added solu-medrol today to see how she does unfortunately, poor prognosis and only saturating in the upper 80s with Bipap will speak with family regarding patient's condition, currently, she is a DNR Aspiration Pneumonia CXR suggests left basilar consolidation due to history; this is suggestive of an aspiration pneumonia patient had been on Keflex for a cellulitis; started on 05/19 Given one dose of Zosyn in the ER, and then given Clindamycin yesterday (05/26) changed this to Zosyn again today (no adverse reaction to Zosyn seen; though PCN allergy noted) Continue Bipap; Zosyn; nebulizers as needed; solu-medrol poor prognosis as she is aspirating nearly everything when she tries to eat CAD s/p stenting home medications of aspirin, Plavix, statin, JERRY-I, Imdur unfortunately, she is currently on Bipap and cannot tolerate anything by mouth poor prognosis DVT ppx subq heparin DNR will speak with patient's daughter regarding her poor prognosis - at this point , we will treat aspiration pneumonia with antibiotics as outlined above - but patient is very tenuous with a significant respiratory acidosis; with a poor response to Bipap
--- NOTE | 2016-05-27 16:08 | Progress Note ---
Progress Note Date of Service May 27, 2016. Progress Note Spoke with daughter Beverly on the phone and let her know the condition patient was in. She cannot tolerate anything by mouth and is aspirating on everything. Recommendation was strict NPO including medications. I let the patient's daughter know this and let her know that the best way to proceed to is make patient comfort care only. Daughter, Jenae, presented to bedside and saw the patient. She agreed that patient does not have much fight left and would like her to be comfort measures only. I will transfer her to the fourth floor. Patient's is coming in to see the patient; I will talk with him prior to discontinuing all medications.
[2016-05-27] MEDS ORDERED: LORAZEPAM 2 MG/ML 1 ML VIAL IV PRN (17:30)
[2016-05-27] MEDS ORDERED: MoRPHine SULFATE 2 MG/ML CARP IV PRN (17:30)
[2016-05-27] MEDS ORDERED: SCOPOLAMINE 1.5 MG TDSY TD SCH (18:00)
[2016-05-27] MEDS: LORAZEPAM INJ 1 MG in SYRINGE 0.5 ML IV PRN (20:19)
[2016-05-28] MEDS: LORAZEPAM INJ 1 MG in SYRINGE 0.5 ML IV PRN (03:57)
[2016-05-28 07:49] VITALS: O2SAT 93
--- NOTE | 2016-05-28 10:46 | Progress Note ---
Subjective Date of Service: May 28, 2016. Subjective Pt evaluation today including: conversation w/ family (daughter), physical exam , lab review, review of studies, review of inpatient medication list Saw/examined the patient in room 407 she has a simple mask on her face eyes are open; staring out, but does not respond to stimuli Does not seem to be in any distress, no respiratory issues Was given Ativan last night due to agitation Problem List Medical Problems: (1) Cellulitis of left lower extremity Status: Acute (2) CHF (congestive heart failure) Status: Acute (3) Pulmonary aspiration Status: Acute (4) Respiratory failure Status: Acute Medications Current Inpatient Medications Medications (Trade) Dose Ordered Sig/Kev Route Start Time Stop Time Status Last Admin Dose Admin Ipratropium [place] (Atrovent 0.02% 0.5MG/2.5ML Neb) 0.5 mg Q4H PRN INH 05/26/16 06:45 06/25/16 06:44 Levalbuterol 1.25 mg 1.25 mg Q4H PRN INH 05/26/16 06:45 06/25/16 06:44 Acetaminophen/ Empty Bag (Ofirmev Iv/ Empty Iv Bag 100ml) 65 ml @ 260 mls/hr Q6H PRN IV 05/26/16 19:00 06/25/16 18:59 Morphine Sulfate (MoRPHine SULFATE INJ) 1 mg Q2HWA PRN IV 05/27/16 17:30 06/10/16 17:29 Lorazepam (Ativan Inj) 1 mg Q4H PRN IV 05/27/16 17:30 06/26/16 17:29 Scopolamine (Transderm-Scop Patch) 1.5 mg Q72H TD 05/27/16 18:00 06/26/16 17:59 05/27/16 19:47 1.5 MG Miscellaneous (Remove Transderm-Scop Patch) 1 ea Q72H N/A 05/30/16 18:00 06/29/16 17:59 Miscellaneous Information 1 ea 1 ea TID N/A 05/28/16 20:00 06/27/16 20:59 Lorazepam/Syringe (Ativan Inj/ Syringe) 1 ml @ 1 mls/min Q4H PRN IV 05/27/16 20:15 06/26/16 20:14 05/28/16 03:57 1 MLS/MIN Objective Vital Signs Date Time Temp Pulse Resp B/P Pulse Ox O2 Delivery O2 Flow Rate FiO2 05/28/16 07:49 93 Mask 6.0 05/28/16 00:05 Mask 6.0 05/27/16 17:30 36.3 101 20 96 6.0 05/27/16 16:00 Mask 6.0 05/27/16 15:00 36.3 101 20 96/58 96 Mask 6.0 05/27/16 14:27 110 20 93 Diffusion Mask 6.0 05/27/16 12:43 BiPAP 35 05/27/16 11:05 36.6 88 20 110/68 90 BiPAP Physical Exam General Appearance: no apparent distress, + cachetic, + thin ENT: + pertinent finding (scopolamine patch behind the left ear noted) Respiratory/Chest: no respiratory distress, no accessory muscle use Laboratory Results Last 24 Hours Test 05/27/16 11:24 Bedside Glucose 123 mg/dl Assessment and Plan This is an 85 year old female with PMH of CAD s/p stenting, A. fib/A flutter, second degree AV block, HTN presents with acute respiratory failure and aspiration Due to significant gross aspiration with all consistencies, spoke with the family about patient's condition and goals. She was only saturating in the low 90s with bipap in place with respiratory distress; it was decided that patient be put on comfort measures only status. She was transferred to the fourth floor. Morphine, Ativan PRN Scopolamine patch placed for secretions nebulizers as needed for respirations Poor prognosis - will likely in the hospital Acute Hypercapnic/Hypoxic Respiratory Failure as per family, patient has been choking on food as per nursing, patient was talking this AM (05/27) and aspirated nearly everything oxygen saturation dipped and patient was put back on Bipap ABGs suggest respiratory acidosis with hypercapnia & hypoxia added solu-medrol today to see how she does unfortunately, poor prognosis and only saturating in the upper 80s with Bipap will speak with family regarding patient's condition, currently, she is a DNR Aspiration Pneumonia CXR suggests left basilar consolidation due to history; this is suggestive of an aspiration pneumonia patient had been on Keflex for a cellulitis; started on 05/19 Given one dose of Zosyn in the ER, and then given Clindamycin yesterday (05/26) changed this to Zosyn again today (no adverse reaction to Zosyn seen; though PCN allergy noted) Continue Bipap; Zosyn; nebulizers as needed; solu-medrol poor prognosis as she is aspirating nearly everything when she tries to eat CAD s/p stenting home medications of aspirin, Plavix, statin, JERRY-I, Imdur unfortunately, she is currently on Bipap and cannot tolerate anything by mouth poor prognosis DVT ppx subq heparin DNR will speak with patient's daughter regarding her poor prognosis - at this point , we will treat aspiration pneumonia with antibiotics as outlined above - but patient is very tenuous with a significant respiratory acidosis; with a poor response to Bipap
--- NOTE | 2016-05-28 14:45 | Progress Note ---
Progress Note Date of Service May 28, 2016. Progress Note Was called in to see the patient - as per nursing, family members stated that she stopped breathing. Went up to see the patient; daughter was in the room with her and all answers and questions answered and condolences given. No heart sounds, no pulses felt No spontaneous breaths pupils fixed and dilated Time of : 1412 Cause of : Pneumonia, Gross Aspiration certificate filled out
--- NOTE | 2016-05-28 14:47 | Discharge Summary ---
Discharge Summary Date of Service May 28, 2016. Discharge Summary Admission Date: May 26, 2016 at 05:45 Discharge Date: May 28, 2016 Discharge Disposition: Principal Diagnosis: Pneumonia Gross Aspiration CAD Hospital Course This is an 85 year old female with PMH of CAD s/p stenting, A. fib/A flutter, second degree AV block, HTN presents with acute respiratory failure and aspiration Was called in to see the patient - as per nursing, family members stated that she stopped breathing. Went up to see the patient; daughter was in the room with her and all answers and questions answered and condolences given. No heart sounds, no pulses felt No spontaneous breaths pupils fixed and dilated Time of : 141 Cause of : Pneumonia, Gross Aspiration certificate filled out Due to significant gross aspiration with all consistencies, spoke with the family about patient's condition and goals. She was only saturating in the low 90s with bipap in place with respiratory distress; it was decided that patient be put on comfort measures only status. She was transferred to the fourth floor. Morphine, Ativan PRN Scopolamine patch placed for secretions nebulizers as needed for respirations Poor prognosis - will likely in the hospital Acute Hypercapnic/Hypoxic Respiratory Failure as per family, patient has been choking on food as per nursing, patient was talking this AM (05/27) and aspirated nearly everything oxygen saturation dipped and patient was put back on Bipap ABGs suggest respiratory acidosis with hypercapnia & hypoxia added solu-medrol today to see how she does unfortunately, poor prognosis and only saturating in the upper 80s with Bipap will speak with family regarding patient's condition, currently, she is a DNR Aspiration Pneumonia CXR suggests left basilar consolidation due to history; this is suggestive of an aspiration pneumonia patient had been on Keflex for a cellulitis; started on 05/19 Given one dose of Zosyn in the ER, and then given Clindamycin yesterday (05/26) changed this to Zosyn again today (no adverse reaction to Zosyn seen; though PCN allergy noted) Continue Bipap; Zosyn; nebulizers as needed; solu-medrol poor prognosis as she is aspirating nearly everything when she tries to eat CAD s/p stenting home medications of aspirin, Plavix, statin, JERRY-I, Imdur unfortunately, she is currently on Bipap and cannot tolerate anything by mouth poor prognosis DVT ppx subq heparin DNR will speak with patient's daughter regarding her poor prognosis - at this point , we will treat aspiration pneumonia with antibiotics as outlined above - but patient is very tenuous with a significant respiratory acidosis; with a poor response to Bipap Total time spent on discharge = 20 minutes This includes examination of the patient, discharge planning, medication reconciliation, and communication with other providers. Discharge Instructions .
[2016-05-28] MEDS ORDERED: CHECK SCOPOLAMINE PATCH PLACEMENT SCH (20:00)
== END 2016-05-28 15:59 | disposition expired | DRG 177 ==
LOC: ENRESERVDT → ENRESERVTM → EDBD 03:05 → C.EDA 03:07 → C.2T 05:45 → C.4E 05-27 17:51
PROVIDERS: ADMIT Hospitalist; ATTEND Family Medicine
DX: J69.0 Pneumonitis due to inhalation of food and vomit (principal); J96.91 Respiratory failure, unspecified with hypoxia; L03.116 Cellulitis of left lower limb; E46 Unspecified protein-calorie malnutrition; Z66 Do not resuscitate; Z51.5 Encounter for palliative care; I48.91 Unspecified atrial fibrillation; I44.1 Atrioventricular block, second degree; I50.9 Heart failure, unspecified; I25.10 Atherosclerotic heart disease of native coronary artery without angina pectoris; I10 Essential (primary) hypertension; E11.9 Type 2 diabetes mellitus without complications; Z90.49 Acquired absence of other specified parts of digestive tract; Z90.710 Acquired absence of both cervix and uterus; Z79.82 Long term (current) use of aspirin